=== PATIENT | male | born 1960 | race Caucasian/White ===

== ENCOUNTER 2021-06-16 14:29 | Emergency (ER) | payer BC, OTHER ==
[~2021-06-16] VITALS: Ht 195.6 cm; Wt 127.3 kg
[2021-06-16 14:41] VITALS: TEMP 98.2
[2021-06-16 15:36] LABS: BASO # 0.1 (0.0-0.2); BASO % 0.9 % (0.0-2.0); EOS # 0.3 (0.0-0.7); EOS % 3.2 % (0-4.0); GRAN # 6.5 (1.4-6.5); GRAN % 60.4 % (42.2-75.2); HEMATOCRIT 37.7 % (42.0-52.0); LYMPH # 2.3 (1.2-3.4); LYMPH % 21.4 % (20.0-51.0); MEAN CELL VOLUME 76 fl (80.0-100.0); MEAN CORPUSCULAR HEMOGLOBIN 24 pg (27.0-31.0); MEAN CORPUSCULAR HGB CONC 32 g/dl (33.0-37.0); MEAN PLATELET VOLUME 10.2 fl (7.4-10.4); MONO # 1.5 (0.1-0.6); MONO % 13.6 % (1.7-9.3); PLATELET COUNT 396 K/mm3 (130-400); RED BLOOD COUNT 4.98 M/mm3 (4.20-5.60); REDCELL DISTRIBUTION WIDTH-CV 14.3 % (11.5-14.5)
[2021-06-16 15:48] LABS: ALANINE AMINOTRANSFERASE 17 U/L (4-49); ALBUMIN 3.9 gm/dL (3.5-5.0); ALKALINE PHOSPHATASE 72 U/L (50-136); ANION GAP 11 mmol/L (7-16); AST,SGOT 23 U/L (15-37); BILIRUBIN,TOTAL 0.4 mg/dL (0.0-1.0); BLOOD UREA NITROGEN 19 mg/dL (9-20); CALCIUM 9.4 mg/dL (8.4-10.2); CARBON DIOXIDE 25 mmol/L (22-30); CHLORIDE 103 mmol/L (98-107); CREATININE, serum 1.46 (0.66-1.25); GLUCOSE 101 mg/dL (74-106); POTASSIUM 3.2 mmol/L (3.4-5.0); SODIUM 139 mmol/L (137-145); TOTAL PROTEIN 6.9 gm/dL (6.4-8.2)
[2021-06-16 16:02] LABS: TROPONIN-I < 0.012 ng/mL (0.000-0.035)
[2021-06-16 16:39] VITALS: BP 122/86; PULSE 72
== END 2021-06-16 16:41 | disposition home or self-care (01) ==
LOC: COL.ER 14:29
PROVIDERS: Physician Assistant
DX: D64.9 Anemia, unspecified (principal); E87.6 Hypokalemia; R79.89 Other specified abnormal findings of blood chemistry